=== PATIENT | female | born 1990 | race Asian ===

== ENCOUNTER 2021-05-07 17:43 | Outpatient (CLI) | payer OTHER ==
[~2021-05-07] VITALS: Ht 160 cm; Wt 62.7 kg
[2021-05-07 18:30] VITALS: BP 119/80; PULSE 83
[2021-05-07 19:30] VITALS: BP 113/67; PULSE 78
--- NOTE | 2021-05-07 19:30 | NUR ---
1929 REST ON LEFT OR RIGHT SIDE. BABY VERY ACTIVE AND MOVING ALMOST CONSTANTLY. FHT BASE 150 WITH ACCELS TO 160. C/O SOME CONTRACTIONS OCC. UP TO BR TO VOID. RETURNED TO BED AND SITTING UP. 1941 FHT BASELINE 145 WITH ACCELS NOTED TO 160'S. DR FLYNN NOTIFIED AND MAY GO HOME 1999 DISMISS INSTRUCTIONS GIVEN. HOME WITH INSTRUCTIONS.
== END 2021-05-07 20:00 | disposition home or self-care (01) ==
LOC: LDRO 17:43 → LDR 18:00 → LDRO 20:00
DX: O47.1 False labor at or after 37 completed weeks of gestation (principal); Z3A.37 37 weeks gestation of pregnancy
CPT/HCPCS: OP

== ENCOUNTER 2021-05-13 05:11 | Inpatient (IN) | payer OTHER ==
[~2021-05-13] VITALS: Ht 160 cm; Wt 62.7 kg
[2021-05-13] VITALS (45 sets, daily range): BP systolic 107–138; BP diastolic 55–98; PULSE 67–126; TEMP 97.6–98.8
--- NOTE | 2021-05-13 05:20 | NUR ---
0520- PATIENT WHEELED ONTO UNTI WITH SPOUSE BY HER SIDE. PATIENT IS DR. MONTESINOS PATIENT WHO IS A AT 38.4. PATIENT REPORTS SROM AT 0400 AT HOME. DENIES BLEEDING AND HAS HAD IRREGULAR CONTRACTIONS SINCE WATER BREAKING. COMPLICATED BY POLYHYDRAMNIOS. 0525- EFM AND TOCO ON AND TRACING. VITALS TAKEN, ASSESSMENT COMPLETE. PLAN OF CARE DISCUSSED. 0530- SVE 2-/-2 WITH POSITIVE AMNIOTRACE. PATIENT VERBALIZED UNDERSTANDING AND DENIES FURTHER NEEDS. CALL LIGHT WITHIN REACH.
[2021-05-13] MEDS ORDERED: PRENATAL TABLET PO (05:49)
[2021-05-13] MEDS ORDERED: NATURAL IRON65 MG (05:49)
[2021-05-13 06:18] LABS: BASO % 0.3 % (0.0-2.0); EOS % 0.1 % (0.0-4.0); GRAN % 72.9 % (42.2-75.2); HEMOGLOBIN 11.2 g/dl (12.5-16.0); LYMPH # 1.4 K/mm3 (1.2-3.4); LYMPH % 20.4 % (20.0-51.0); MEAN CELL VOLUME 89 fl (80.0-100.0); MEAN CORPUSCULAR HEMOGLOBIN 30 pg (27-31); MEAN CORPUSCULAR HGB CONC 34 g/dl (33.0-37.0); MEAN PLATELET VOLUME 11.9 fl (7.4-10.4); MONO # 0.4 K/mm3 (0.1-0.6); PLATELET COUNT 184 K/mm3 (130-400); RED BLOOD COUNT 3.72 M/mm3 (4.10-5.30); REDCELL DISTRIBUTION WIDTH-CV 13.9 % (11.5-14.5)
[2021-05-13 06:20] LABS: HEMATOCRIT 33.2 % (37.0-47.0)
--- NOTE | 2021-05-13 07:30 | NUR ---
PT AMBULATING IN HALLWAYS AND THROUGHOUT ROOM TO HELP WITH LABOR COPING AND PROGESSION. PRIOR TO AMBULATION EFM TRACING CATEGORY 1 STRIP WITH ACCELERATIONS AND NO DECELERATIONS NOTED. VITAL SIGNS STABLE. [place] PAD AND UNDERWEAR PROVIDED BY THIS NURSE.
--- NOTE | 2021-05-13 08:45 | NUR ---
PT SITTING ON EDGE OF BED FOR EPIDURAL PLACEMENT. LR BOLUS INFUSING. MATERNAL VITAL SIGNS STABLE. DIFFICULTY TRACING EFM/TOCO DUE TO MATERNAL POSITIONING. FIRM CONTRATIONS PALPATED Q2MIN BY THIS RN. 0845: SINGLE SHOT PER KRIS SALAZAR. PT TOLERATED PROCEDURE WILL. WILL CONTINUE CLOSE MONITORING, VITAL SIGNS STABLE AT THIS TIME. CATEGORY 1 STRIP NOTED UPON RETURNING BACK TO A LYING POSITION IN BED FOLLOWING SINGLE SHOT.
--- NOTE | 2021-05-13 13:38 | NUR ---
1338: PT COMPLETE/+2 AT THIS TIME. COACHED THROUGH PUSHING EFFORTS. ROOM PREPARED FOR DELIVERY. ALL APPROPRIATE TEAM MEMBERS NOTIFIED. EFREN PÉREZ'Lina. 1300ML OF CLEAR YELLOW URINE DRAINED FROM [place] AT THIS TIME. 1600: AT BEDSIDE ASSESSING PT AND PLAN OF CARE. PUSHES WITH PT AT THIS TIME. EDUCATES PT ON POTENTIAL NECESSITY OF VACUUM EXTRACTION DUE TO EXTREME MATERNAL EXHAUSTION. PT AGREEABLE AND REQUESTING ASSISTANCE. 1625: SUCCESSFUL VACUUM ASSISTED VAGINAL DELIVERY OF VIABLE FEMALE AT THIS TIME. INFANT PLACED ON MATERNAL ABDOMEN. CORD CLAMPED X2 AND CUT BY FOB. BABY TO WARMER AND CARE ASSUMED BY KOREY MAC RN. 1633: OF PLACENTA AT THIS TIME. PITOCIN BOLUS INFUSING PER PROTOCOL. BEGINS REPAIR OF SECOND DEGREE PERINEAL LACERATION AT THIS TIME. PT TOLERATING PROCEDURE WELL. LOCHIA MODERATE AT THIS TIME. FUNDUS FIRM AT UMBILICUS. WILL CONTINUE WITH CARES PER PROTOCOL.
--- NOTE | 2021-05-13 19:30 | NUR ---
Epidural dc'd. Up to bathroom with steady guarded gait. doting at bedside. Unable to void at this time. Pericare performed, clean gown on and transferred to bed via wheelchair.
[2021-05-14 04:00] VITALS: BP 114/66; PULSE 67; TEMP 98
[2021-05-14 07:25] LABS: HEMATOCRIT 22.7 % (37.0-47.0); HEMOGLOBIN 7.7 g/dl (12.5-16.0)
[2021-05-14 08:00] VITALS: BP 103/58; PULSE 65; TEMP 98
--- NOTE | 2021-05-14 09:42 | NUR ---
Initial visit; Parents thanked for offering congratulations for the of their daughter. Steward/Stewardess Wine thanked family for choosing [facility].
[2021-05-14 16:30] VITALS: BP 101/57; PULSE 75; TEMP 98.3
[2021-05-14 21:10] VITALS: BP 112/72; PULSE 70; TEMP 97.9
[2021-05-15 07:30] VITALS: BP 99/64; PULSE 69; TEMP 97.8
[2021-05-15] MEDS ORDERED: IBU600 MG PO (13:25)
== END 2021-05-15 17:00 | disposition home or self-care (01) | DRG 807 ==
LOC: LDRO 05:11 → LDR 05:41 → OB 05:41
PROVIDERS: Obstetrics & Gynecology; ADMIT Obstetrics & Gynecology
PROC: 10D07Z6 Extraction of Products of Conception, Vacuum, Via Natural or Artificial Opening (ICD-10-PCS; principal; 2021-05-13)
PROC: 0KQM0ZZ Repair Perineum Muscle, Open Approach (ICD-10-PCS; 2021-05-13)
DX: O40.3XX0 Polyhydramnios, third trimester, not applicable or unspecified (principal); Z37.0 Single live birth; O99.344 Other mental disorders complicating childbirth; F41.9 Anxiety disorder, unspecified; O99.02 Anemia complicating childbirth; D64.9 Anemia, unspecified; O76 Abnormality in fetal heart rate and rhythm complicating labor and delivery; O75.81 Maternal exhaustion complicating labor and delivery; O70.1 Second degree perineal laceration during delivery; Z3A.38 38 weeks gestation of pregnancy; Z23 Encounter for immunization
CPT/HCPCS: J2590; J2795; J7120